=== PATIENT | female | born 1980 | race African-American/Black ===

== ENCOUNTER → 2017-12-30 08:38 | Outpatient (CLI) | payer MEDICAID | END | disposition home or self-care (01) | LOC: D.CT 08:38 | DX: R10.13 Epigastric pain (principal) ==

== ENCOUNTER → 2018-01-20 09:35 | Outpatient (CLI) | payer MEDICAID | END | disposition home or self-care (01) | LOC: D.NM 01-15 09:30 | DX: R10.9 Unspecified abdominal pain (principal) ==

== ENCOUNTER 2018-02-18 05:55 | Day surgery (SDC) | payer MEDICAID ==
[2018-02-17 09:03] LABS: BASOPHILS 0.2 % (0-2); HEMATOCRIT 37.3 % (36.0-48.0); HEMOGLOBIN 11.7 g/dL (12-16); LYMPHOCYTES 36.1 % (15-50); MCH 25.4 pg (26.0-34.0); MCHC 31.4 g/dL (31.0-37.0); MCV 81.1 fL (80.0-100.0); MEAN PLATELET VOLUME 10.4 fL (7.4-10.4); MONOCYTES 9.1 % (2-11); NEUTROPHILS 53.6 % (40-80); PLATELET COUNT 240 10x3/uL (130-400); RDW 15.6 % (11.5-14.5); WBC 4.1 10x3/uL (4.8-10.8)
[2018-02-17 09:18] LABS: CALC OSMOLALITY 279 mosm/kg (275-300); CALCIUM 8.8 mg/dL (8.5-10.1); CARBON DIOXIDE 29.4 mmol/L (21.0-32.0); CHLORIDE - SERUM 106 mmol/L (98-107); CREATININE - SERUM 0.8 mg/dL (0.6-1.3); GLUCOSE 82 mg/dL (74-106); POTASSIUM - SERUM 3.7 mmol/L (3.5-5.1); SODIUM 142 mmol/L (136-145); UREA NITROGEN 8 mg/dL (7-18); eGFR NON AFRICAN AMERICAN 86 mL/min (90-120)
[~2018-02-18] VITALS: Ht 170.2 cm; Wt 83.0 kg
--- NOTE | ~2018-02-18 | OP ---
PATIENT NAME: ROSA MARIA GUADALUPE MEDICAL RECORD: [id number] :82 LOCATION:D.OPS ADMISSION DATE: SURGEON: FARRUKH SRIVASTAVA MD DATE OF OPERATION: 02/18/2018 PREOPERATIVE DIAGNOSES: 1. Biliary dyskinesia. 2. Umbilical hernia. POSTOPERATIVE DIAGNOSES: 1. Biliary dyskinesia. 2. Umbilical hernia. PROCEDURES: 1. Laparoscopic cholecystectomy. 2. Umbilical hernia repair without mesh. SURGEON: Farrukh Srivastava MD [employer] MAKER: Jessika Negron APRN REPORT OF OPERATION: The patient's abdomen was prepped and draped in sterile fashion. A semicircular incision was made on the inferior aspect of the umbilicus. Electrocautery was used to dissect through subcutaneous tissues. We then came through the umbilical stalk and at that point, we encountered a small umbilical hernia defect. This defect was less than 1 cm in greatest diameter, ended up extending this opening inferiorly and penetrating into the peritoneal cavity with blunt dissection. At this point, 0 Vicryls were placed in the fascia bilaterally. A 12-mm Carlene port was inserted into the abdomen. After insufflation was obtained, then a 5-mm trocar was placed in the epigastrium and 2 more 5-mm trocars were placed in the right subcostal region. The gallbladder was elevated and there was noted to be inflammatory fatty adhesions present to the gallbladder. These were teased down carefully with blunt dissection and upon doing this, there was tearing of the liver just to the left of the gallbladder. We eventually got all of the fatty tissue and adhesions down. The cystic duct and 2 cystic arteries were clipped proximally and distally and ligated. The gallbladder was then taken off the liver bed using electrocautery. Any bleeding from the liver bed was treated with electrocautery and the injury to the liver was also treated with electrocautery. We irrigated out the abdomen and assured there was no sign of any bleeding or bile leakage. At this point, the ports and insufflation were then removed and the gallbladder was taken out through the umbilicus. The umbilical fascia was then closed longitudinally with interrupted 0 Prolene. There was good approximation of the tissue. The umbilicus was then tacked down to the fascia using an interrupted 3-0 Vicryl. The subcutaneous tissues were reapproximated with interrupted 3-0 Vicryl and the skin was closed with running subcutaneous 5-0 Monocryl. A total of 10 mL of 0.25% Marcaine with epinephrine was infused into the surrounding tissues and the wounds were dressed appropriately. COMPLICATIONS: None. CONDITION: Stable. ANESTHESIA: General endotracheal and local. OPERATIVE REPORT [id number] ROSA MARIA GUADALUPE BLOOD LOSS: Minimal. TRANSINT:[id number] Voice Confirmation ID: [id number] DOCUMENT ID: [id number] FARRUKH SRIVASTAVA MD at 1219 CC: KAYY AGUIRRE DO [id number] DICTATION DATE: 02/18/18901 PSYCHOLOGICAL OPERATIONS OFFICER: 02/18/18 09 [facility] [address] [place] [address]
[~2018-02-18 05:55] MED LIST: MULTI-DAY VITAM1 TAB PO; VITAMIN C WIT1000 MG
[2018-02-18 07:24] LABS: HCG URINE NEGATIVE (NEGATIVE)
[2018-02-18 07:25] VITALS: BP 142/82; Ht 170.2 cm; Wt 83.0 kg
[2018-02-18] MEDS ORDERED: NORCO 10-325 TA1 TAB PO (08:58)
== END 2018-02-18 11:50 | disposition home or self-care (01) ==
LOC: D.OPS 05:55 → D.PAN 08:00 → D.OPS 11:50
PROVIDERS: Surgery
DX: K82.8 Other specified diseases of gallbladder (principal); K42.9 Umbilical hernia without obstruction or gangrene; Z01.812 Encounter for preprocedural laboratory examination

== ENCOUNTER → 2018-03-31 14:56 | Outpatient (CLI) | payer MEDICAID ==
[2018-02-18 07:25] VITALS: BMI 28.7
[~2018-03-31 14:56] MED LIST changes: +NORCO 10-325 TA1 TAB PO
== END | disposition home or self-care (01) ==
LOC: D.RAD 14:56
DX: M25.512 Pain in left shoulder (principal); M54.9 Dorsalgia, unspecified

== ENCOUNTER 2018-06-17 20:01 | Emergency (ER) | payer MEDICAID ==
[~2018-06-17] VITALS: Ht 170.2 cm; Wt 80.9 kg
[2018-06-17 20:20] VITALS: Ht 170.2 cm; Wt 80.9 kg
[2018-06-17 20:57] LABS: BASOPHILS 0.2 % (0-2); EOSINOPHILS 0.9 % (0-7); HEMATOCRIT 37.5 % (36.0-48.0); HEMOGLOBIN 11.8 g/dL (12-16); IMMATURE GRANULOCYTES 0.3 % (0-5); MCH 25.3 pg (26.0-34.0); MCHC 31.5 g/dL (31.0-37.0); MCV 80.3 fL (80.0-100.0); MEAN PLATELET VOLUME 10.9 fL (7.4-10.4); MONOCYTES 9.7 % (2-11); NEUTROPHILS 48.9 % (40-80); PLATELET COUNT 277 10x3/uL (130-400); RBC 4.67 10x6/uL (4.00-5.40); RDW 14.7 % (11.5-14.5); WBC 5.8 10x3/uL (4.8-10.8)
[2018-06-17 21:05] LABS: APTT 31.5 SECONDS (22.8-39.4); INR 1.01 (0.85-1.17); PROTIME 12.8 SECONDS (11.6-15.0)
[2018-06-17 21:21] LABS: ALBUMIN 3.7 g/dL (3.4-5.0); ALKALINE PHOSPHATASE 76 U/L (46-116); ALT (SGPT) 19 U/L (10-68); BILIRUBIN - TOTAL 0.28 mg/dL (0.2-1.3); CALC OSMOLALITY 275 mosm/kg (275-300); CALCIUM 8.5 mg/dL (8.5-10.1); CHLORIDE - SERUM 104 mmol/L (98-107); CREATININE - SERUM 0.8 mg/dL (0.6-1.3); GLUCOSE 89 mg/dL (74-106); POTASSIUM - SERUM 3.6 mmol/L (3.5-5.1); PROTEIN - SERUM 7.6 g/dL (6.4-8.2); SODIUM 139 mmol/L (136-145); UREA NITROGEN 10 mg/dL (7-18); eGFR NON AFRICAN AMERICAN 86 mL/min (90-120)
[2018-06-17 21:33] LABS: CKMB 0.7 U/L (0.0-3.6); CREATINE KINASE 178 UL (21-215)
[2018-06-17 21:34] LABS: TROPONIN-I < 0.017 ng/mL (0.000-0.060)
[2018-06-17 22:19] LABS: APPEARANCE CLEAR (CLEAR); BILIRUBIN NEGATIVE (NEGATIVE); COLOR YELLOW (YELLOW); GLUCOSE NEGATIVE (NEGATIVE); KETONE NEGATIVE (NEGATIVE); NITRITE NEGATIVE (NEGATIVE); PROTEIN NEGATIVE (NEGATIVE); UROBILINOGEN NORMAL (NORMAL)
[2018-06-17 22:21] LABS: RED CELLS - URINE 0-5 /hpf (0-5); WHITE CELLS - URINE OCC /hpf (0-5)
[2018-06-17 22:22] LABS: BACTERIA FEW /hpf (NONE SEEN); EPITHELIAL CELLS 0-5 /hpf (0-5); MUCUS <1+ /lpf (NONE SEEN)
[2018-06-17 22:23] LABS: HCG URINE NEGATIVE (NEGATIVE)
[2018-06-17 23:08] VITALS: BP 143/92
== END 2018-06-17 23:10 | disposition home or self-care (01) ==
LOC: D.ER 20:01
PROVIDERS: Family Medicine
DX: R10.9 Unspecified abdominal pain (principal); R07.89 Other chest pain; R53.81 Other malaise

== ENCOUNTER → 2018-08-02 08:09 | Outpatient (CLI) | payer MEDICAID ==
[2018-06-17 20:20] VITALS: BMI 27.9
[2018-08-02 10:27] LABS: ALBUMIN 3.4 g/dL (3.4-5.0); BILIRUBIN - DIRECT 0.15 mg/dL (0.00-0.30); BILIRUBIN - INDIRECT 0.45 mg/dL (0.00-1.00); BILIRUBIN - TOTAL 0.6 mg/dL (0.2-1.3); PROTEIN - SERUM 7.1 g/dL (6.4-8.2)
== END | disposition home or self-care (01) ==
LOC: D.US 08:00
PROVIDERS: ATTEND Internal Medicine Gastroenterology
DX: K76.0 Fatty (change of) liver, not elsewhere classified (principal)

== ENCOUNTER → 2018-09-01 13:26 | Outpatient (CLI) | payer MEDICAID ==
[2018-06-17 20:20] VITALS: BMI 27.9
== END | disposition home or self-care (01) ==
LOC: D.HCCARDIO 13:26
PROVIDERS: ATTEND Internal Medicine Cardiovascular Disease
DX: R07.9 Chest pain, unspecified (principal)

== ENCOUNTER → 2018-09-15 10:06 | Outpatient (CLI) | payer MEDICAID ==
[2018-06-17 20:20] VITALS: BMI 27.9
--- NOTE | 2018-09-17 09:40 | ST ---
PATIENT:ROSA MARIA GUADALUPE MEDICAL RECORD: [id number] SEX: F LOCATION:[facility] ORDER #: ADMISSION DATE: 09/15/18 AGE OF PATIENT: 37 REFERRING PHYSICIAN: INTERPRETING PHYSICIAN: KALIN SHELDON MD DATE OF SERVICE: 09/15/2018 PROCEDURES: Nuclear stress test. INDICATIONS: Angina, chest pain compatible with angina. The patient was exercised on standard Kuldeep protocol for 9 minutes 40 seconds achieving greater than 85% max target heart rate response with 32 mCi of sestamibi injected at peak stress, 11 mCi were used previously for rest images. FINDINGS: Gated SPECT reveals preserved ejection fraction at 69% with good wall motion and thickening and brightening throughout all segments. SPECT imaging Cardiolite was used as myocardial perfusion agent. There is homogeneous uptake throughout all segments at rest and stress with no evidence of inducible ischemia or previous infarction. OVERALL IMPRESSION: 1. This is a normal nuclear stress test with no evidence of inducible ischemia or previous infarction. 2. Gated SPECT reveals a preserved ejection fraction at 69%. In this patient with ongoing symptomatology, the current scan does not suggest the presence of hemodynamically significant coronary artery disease. Evaluate noncardiac etiology of chest pain. TRANSINT:[id number] Voice Confirmation ID: [id number] DOCUMENT ID: [id number] KALIN SHELDON MD at 0940 CC: KAYY AGUIRRE DO [id number] DICTATION DATE: 09/15/18 1608 [employer] PROCESSING LABOURER: 09/16/18 1007 DEP CLI 09/15/18 [place] [id number] [place] [id number]
== END | disposition home or self-care (01) ==
LOC: D.HCCARDIO 10:06
PROVIDERS: ATTEND Internal Medicine Cardiovascular Disease
DX: R94.39 Abnormal result of other cardiovascular function study (principal)

== ENCOUNTER → 2019-05-27 08:58 | Outpatient (CLI) | payer OTHER ==
[2018-06-17 20:20] VITALS: BMI 27.9
== END | disposition home or self-care (01) ==
LOC: D.NM 05-17 11:30
PROVIDERS: ATTEND Surgery
DX: R10.9 Unspecified abdominal pain (principal); R14.0 Abdominal distension (gaseous)